=== PATIENT | male | born 1955 | race African-American/Black ===

== ENCOUNTER 2017-04-27 02:58 | Inpatient (IN) | payer OTHER ==
[~2017-04-27] VITALS: Ht 175.3 cm; Wt 101.8 kg
[~2017-04-27 02:58] MED LIST: ACET325T9 PO; ALPR0.25 PO; ALPR0.254 PO; ALPR0.5T PO; ASPI325T8 PO; ATOR20TA58 PO; CARV6.25 PO; CLOP75TA PO; DOCU-109 PO; ESCITALOPRAM OXA5 MG PO; FENO134C PO; FLUT1DIS3 INH; FURO-68 PO; GLIP5TAB10 PO; HYDR-2762 PO; Hydrocodone/Acetaminophen PO; INSU100C4 SQ; INSU100I17 SQ; LINA5TAB4 PO; LISI-338 PO; LISI5TAB PO; METF500T4 PO; NITR0.4T SL; NITR0.4T22 SL; NITR12SP; OMEP20CA9 PO; POTA20TA4 PO; PROAIR HFA8.5 GM; PROAIR HFA8.5 GM IH; SITA100T PO; TICA90TA PO; TRAM50TA PO
[2017-04-27] MEDS ORDERED: IV NORMAL SALINE 1000ML BAG 1,000 ML IV ONE (04:00)
[2017-04-27] MEDS ORDERED: INSULIN REGULAR 100 UNIT/ML 10ML VIAL. IV ONE (04:00)
[2017-04-27 04:03] LABS: BASO # 0.1 x10^3/uL (0.0-0.2); BASO % 1 % (0-3); EOS % 1 % (0-3); HEMATOCRIT 40.1 % (39.0-53.0); HEMOGLOBIN 13.8 g/dL (13.0-17.5); LYMPH # 1.4 x10^3/uL (1.0-4.8); LYMPH % 17 % (24-48); MEAN CORPUSCULAR HEMOGLOBIN 29 pg (25-35); MEAN CORPUSCULAR HGB CONC 34 g/dL (31-37); MEAN CORPUSCULAR VOLUME 85 fL (79-100); MONO % 11 % (0-9); NEUT % 71 % (31-73); PLATELET COUNT 167 x10^3/uL (140-400); RED CELL DISTRIBUTION WIDTH 15.1 % (11.5-14.5); WHITE BLOOD COUNT 7.9 x10^3/uL (4.0-11.0)
[2017-04-27 04:17] LABS: INR 1.7 (0.8-1.1); PROTHROMBIN TIME PATIENT 18.7 SEC (11.7-14.0)
[2017-04-27] MEDS ORDERED: POTASSIUM CHLORIDE 20MEQ 50 ML IV ONE (04:30)
[2017-04-27] MEDS: POTASSIUM CHLORIDE 10MEQ 100 ML IV SCH ×2 (04:36→05:38)
--- NOTE | 2017-04-27 04:44 | PHYS DOC ---
Past Medical History Past Medical History: CHF, COPD, Diabetes-Type II, High Cholesterol, Heart Disease, Hypertension, NM Past Surgical History: Angioplasty, Other Additional Past Surgical Histo: cardiac stents x 3 Alcohol Use: None Drug Use: None Adult General Chief Complaint Chief Complaint: HYPERGLYCEMIA HPI HPI Patient is a 61 year old male presents to the ED with concerns for elevated blood sugars, he states that home is a meter was reading high. Patient also complains of malaise and just not feeling right. He denies any recent illnesses , fevers, chills, vomiting, diarrhea, rashes, sick contacts. Patient is not having any pain at this time. Review of Systems Review of Systems Constitutional: Denies fever or chills. Feels not right Eyes: Denies change in visual acuity, redness, or eye pain [] HENT: Denies nasal congestion or sore throat [] Respiratory: Denies cough or shortness of breath [] Cardiovascular: No chest pain GI: Denies abdominal pain, nausea, vomiting, bloody stools or diarrhea [] : Denies dysuria or hematuria [] Musculoskeletal: Denies back pain or joint pain [] Integument: Denies rash or skin lesions [] Neurologic: Denies headache, focal weakness or sensory changes [] Current Medications Current Medications Current Medications Medications (Trade) Dose Ordered Sig/Chirag Start Time Stop Time Status Last Admin Dose Admin Insulin Human Regular (NovoLIN R VIAL) 8 unit 1X ONCE 04/27/17 04:00 04/27/17 04:01 DC 04/27/17 04:07 8 UNIT Potassium Chloride 100 ml @ 100 mls/hr Q1H 04/27/17 05:00 04/27/17 06:59 04/27/17 04:36 100 MLS/HR Potassium Chloride (Klor-Con) 40 meq 1X ONCE 04/27/17 05:00 04/27/17 05:01 DC 04/27/17 04:36 40 MEQ Sodium Chloride 1,000 ml @ 1,000 mls/hr 1X ONCE 04/27/17 04:00 04/27/17 04:59 DC 04/27/17 04:05 1,000 MLS/HR Allergies Allergies Allergies Coded Allergies Type Severity Reaction Last Updated Verified morphine Allergy Intermediate Rash 04/14/14 Yes shellfish derived Allergy Intermediate 12/11/14 No Physical Exam Physical Exam Constitutional: Well developed, well nourished, no acute distress, non-toxic appearance. [] HENT: Normocephalic, atraumatic, bilateral external ears normal, oropharynx dry no oral exudates, nose normal. [] Eyes: EOMI, conjunctiva normal, no discharge. [] Neck: Normal range of motion, no tenderness, supple, no stridor. No LAD, no meningeal signs Cardiovascular:Heart rate regular rhythm, no murmur [] Lungs & Thorax: Bilateral breath sounds clear to auscultation, no tachypnea Abdomen: Bowel sounds normal, soft, no tenderness, no masses, no pulsatile masses. [] Skin: Warm, dry, no erythema, no rash. [] Back: No tenderness, no CVA tenderness. [] Extremities: No tenderness, no cyanosis, no DVT, ROM intact, no edema. [] Neurologic: Alert and oriented X 3, normal motor function, ambulates in the ED with normal gait and without assistance no focal deficits noted. [] Psychologic: Affect normal, judgement normal, mood normal. [] Current Patient Data Vital Signs Vital Signs Date Time Temp Pulse Resp B/P (MAP) Pulse Ox O2 Delivery O2 Flow Rate FiO2 04/27/17 03:20 97.8 58 16 115/75 (88) 99 Room Air 97.8 Lab Values Laboratory Tests Test 04/27/17 03:26 04/27/17 03:50 Glucose (Fingerstick) 557 mg/dL (70-99) *H White Blood Count 7.9 x10^3/uL (4.0-11.0) Red Blood Count 4.70 x10^6/uL (4.30-5.70) Hemoglobin 13.8 g/dL (13.0-17.5) Hematocrit 40.1 % (39.0-53.0) Mean Corpuscular Volume 85 fL (79-100) Mean Corpuscular Hemoglobin 29 pg (25-35) Mean Corpuscular Hemoglobin Concent 34 g/dL (31-37) Red Cell Distribution Width 15.1 % (11.5-14.5) H Platelet Count 167 x10^3/uL (140-400) Neutrophils (%) (Auto) 71 % (31-73) Lymphocytes (%) (Auto) 17 % (24-48) L Monocytes (%) (Auto) 11 % (0-9) H Eosinophils (%) (Auto) 1 % (0-3) Basophils (%) (Auto) 1 % (0-3) Neutrophils # (Auto) 5.6 x10^3uL (1.8-7.7) Lymphocytes # (Auto) 1.4 x10^3/uL (1.0-4.8) Monocytes # (Auto) 0.8 x10^3/uL (0.0-1.1) Eosinophils # (Auto) 0.1 x10^3/uL (0.0-0.7) Basophils # (Auto) 0.1 x10^3/uL (0.0-0.2) Platelet Estimate Pending Prothrombin Time 18.7 SEC (11.7-14.0) H Prothrombin Time INR 1.7 (0.8-1.1) H Sodium Level 130 mmol/L (136-145) L Potassium Level 2.7 mmol/L (3.5-5.1) *L Chloride Level 88 mmol/L (98-107) L Carbon Dioxide Level 33 mmol/L (21-32) H Anion Gap 9 (6-14) Blood Urea Nitrogen 58 mg/dL (8-26) H Creatinine 3.0 mg/dL (0.7-1.3) H Estimated GFR (Cockcroft-Gault) 26.0 Glucose Level 537 mg/dL (70-99) *H Calcium Level 9.4 mg/dL (8.5-10.1) Magnesium Level 2.9 mg/dL (1.8-2.4) H Troponin I Quantitative 0.031 ng/mL (0.000-0.055) Laboratory Tests 04/27/17 03:50 Laboratory Tests 04/27/17 03:50 EKG EKG 0319 sinus bradycardia, no STEMI, ST depressions [id number] 3 V4 V5 , prolonged QT 0440 sinus bradycardia, no STEMI ST depressions V2 and V3[], prolonged QT Radiology/Procedures Radiology/Procedures [] Course & Med Decision Making Course & Med Decision Making Pertinent Labs and Imaging studies reviewed. (See chart for details) 0443 pt in nad [] Dragon Disclaimer Dragon Disclaimer This electronic medical record was generated, in whole or in part, using a voice recognition dictation system. Departure Departure Impression: Primary Impression: Hyperglycemia Additional Impressions: Hypokalemia Abnormal EKG Dehydration Prolonged QT interval Disposition: ADMITTED INPATIENT Admitting Physician: Mariaelena Petersen Condition: STABLE Referrals: CHRISTIN ALVARES (PCP) Problem Qualifiers Terry MAYS MD Apr 27, 2017 04:44
[2017-04-27] MEDS ORDERED: POTASSIUM CHLORIDE 20 MEQ TABLET.ER. PO ONE ×2 (05:00→12:15)
[2017-04-27] MEDS ORDERED: ONDANSETRON PF 4 MG/2 ML VIAL. IV PRN (05:15)
--- NOTE | 2017-04-27 06:19 | EKG ---
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
--- NOTE | 2017-04-27 06:51 | EKG ---
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
[2017-04-27 07:28] LABS: PLT ESTIMATE ADEQUATE (ADEQUATE)
[2017-04-27 07:30] VITALS: BP 99/63
[2017-04-27] MEDS ORDERED: ATOR40TA59 PO (08:47)
[2017-04-27] MEDS ORDERED: SILD20TA2 PO (08:47)
[2017-04-27] MEDS ORDERED: AMIO200T2 PO (08:47)
[2017-04-27] MEDS ORDERED: ASPI-482 PO (08:47)
[2017-04-27] MEDS ORDERED: FERR-26 PO (08:47)
[2017-04-27] MEDS ORDERED: CHOL10003 PO (08:47)
[2017-04-27] MEDS ORDERED: WARF7.5T48 PO (08:47)
[2017-04-27 09:25] LABS: ALBUMIN 3.8 g/dL (3.4-5.0); TOTAL BILIRUBIN 0.9 mg/dL (0.2-1.0); TOTAL PROTEIN 7.8 g/dL (6.4-8.2)
[2017-04-27 09:52] LABS: POTASSIUM 2.7 mmol/L (3.5-5.1)
[2017-04-27 09:53] LABS: CALCIUM 9.4 mg/dL (8.5-10.1)
[2017-04-27 10:30] VITALS: BP 97/60
[2017-04-27] MEDS ORDERED: DEXTROSE 50% 25 GM / 50ML DISP.SYRIN. IV PRN (10:30)
[2017-04-27] MEDS ORDERED: INSU100I13 SQ (10:31)
[2017-04-27] MEDS: IV NORMAL SALINE 1000ML BAG 1,000 ML IV SCH ×2 (11:12→20:46)
[2017-04-27] MEDS: INSULIN ASPART 300 UNITS/3 ML INSULN.PEN SQ SCH ×2 (11:16→17:32)
--- NOTE | 2017-04-27 11:18 | PDOC2 ---
CARDIAC CONSULT DATE OF CONSULT Date of Consult DATE: 04/27/17 TIME: 10:48 REASON FOR CONSULT Reason for Consult: Abnormal EKG, bradycardia REFERRING PHYSICIAN Referring Physician: Efrain SOURCE Source: Chart review, Patient HISTORY OF PRESENT ILLNESS HISTORY OF PRESENT ILLNESS This is a pleasant 61 yo male admitted for complains of uncontrolled BG. He was feeling weak and malaise at that time. He noted his BG has been running 200- 400s and decided to come to ED. Denies any dizziness, palpitations or passing out. Denies any n/v/diarrhea/fever or chills. He had an open heart surgery 2015 and it was unclear what valves were fixed since he told me he also ended up with mitral clip aside from tricuspid valve surgery. He has been on coumadin therapy and amiodarone since then. He sees cardiology group and was recently seen about a month ago. PAST MEDICAL HISTORY Cardiovascular: CAD, HTN, IA, Hyperlipidemia, Valve insufficiency Pulmonary: COPD, Other (RODOLFO) GI: GERD Psych: Anxiety Musculoskeletal: Osteoarthritis Renal/: Chronic renal insuff Endocrine: Diabetes (2) PAST SURGICAL HISTORY Past Surgical History: Other (PCI/ARTHUR to RCA and LCx; valve surgery 02/2016) FAMILY HISTORY Family History: Coronary Artery Disease SOCIAL HISTORY Smoke: Quit ALCOHOL: none Drugs: Other (hx of polysubstance abuse) Lives: with Family CURRENT MEDICATIONS CURRENT MEDICATIONS Current Medications Medications (Trade) Dose Ordered Sig/Chirag Route PRN Reason Start Time Stop Time Status Last Admin Dose Admin Sodium Chloride 1,000 ml @ 1,000 mls/hr 1X ONCE IV 04/27/17 04:00 04/27/17 04:59 DC 04/27/17 04:05 Insulin Human Regular (NovoLIN R VIAL) 8 unit 1X ONCE IV 04/27/17 04:00 04/27/17 04:01 DC 04/27/17 04:07 Potassium Chloride (Klor-Con) 40 meq 1X ONCE PO 04/27/17 05:00 04/27/17 05:01 DC 04/27/17 04:36 Potassium Chloride 100 ml @ 100 mls/hr Q1H IV 04/27/17 05:00 04/27/17 06:59 DC 04/27/17 05:38 ALLERGIES ALLERGIES: Coded Allergies: morphine (Verified Allergy, Intermediate, Rash, 04/14/14) shellfish derived (Unverified Allergy, Intermediate, 12/11/14) ROS Review of System 14 point ROS evaluated with pertinent positives noted per HPI PHYSICAL EXAM General: Alert, Oriented X3, Cooperative, No acute distress HEENT: Atraumatic, Mucous membr. moist/pink Lungs: Clear to auscultation, Normal air movement Heart: Regular rate (SB), Normal S1, Normal S2, Other (3/6 systolic murmur to LLS border; ejection click) Neuro: Normal speech, Sensation intact Psych/Mental Status: Mental status NL, Mood NL MUSCULOSKELETAL: Osteoarthritic changes both hands VITALS VITALS Vital Signs Date Time Temp Pulse Resp B/P (MAP) Pulse Ox O2 Delivery O2 Flow Rate FiO2 04/27/17 07:30 97.7 57 18 99/63 (75) 100 Room Air 97.7 LABS Lab: Laboratory Tests Test 04/27/17 03:26 04/27/17 03:50 04/27/17 06:25 04/27/17 07:34 Glucose (Fingerstick) 557 mg/dL (70-99) 172 mg/dL (70-99) 249 mg/dL (70-99) White Blood Count 7.9 x10^3/uL (4.0-11.0) Red Blood Count 4.70 x10^6/uL (4.30-5.70) Hemoglobin 13.8 g/dL (13.0-17.5) Hematocrit 40.1 % (39.0-53.0) Mean Corpuscular Volume 85 fL (79-100) Mean Corpuscular Hemoglobin 29 pg (25-35) Mean Corpuscular Hemoglobin Concent 34 g/dL (31-37) Red Cell Distribution Width 15.1 % (11.5-14.5) Platelet Count 167 x10^3/uL (140-400) Neutrophils (%) (Auto) 71 % (31-73) Lymphocytes (%) (Auto) 17 % (24-48) Monocytes (%) (Auto) 11 % (0-9) Eosinophils (%) (Auto) 1 % (0-3) Basophils (%) (Auto) 1 % (0-3) Neutrophils # (Auto) 5.6 x10^3uL (1.8-7.7) Lymphocytes # (Auto) 1.4 x10^3/uL (1.0-4.8) Monocytes # (Auto) 0.8 x10^3/uL (0.0-1.1) Eosinophils # (Auto) 0.1 x10^3/uL (0.0-0.7) Basophils # (Auto) 0.1 x10^3/uL (0.0-0.2) Segmented Neutrophils % 69 % (35-66) Lymphocytes % 20 % (24-48) Monocytes % 11 % (0-10) Platelet Estimate Adequate (ADEQUATE) Prothrombin Time 18.7 SEC (11.7-14.0) Prothromb Time International Ratio 1.7 (0.8-1.1) Sodium Level 130 mmol/L (136-145) Potassium Level 2.7 mmol/L (3.5-5.1) Chloride Level 88 mmol/L (98-107) Carbon Dioxide Level 33 mmol/L (21-32) Anion Gap 9 (6-14) Blood Urea Nitrogen 58 mg/dL (8-26) Creatinine 3.0 mg/dL (0.7-1.3) Estimated GFR (Cockcroft-Gault) 26.0 BUN/Creatinine Ratio 19 (6-20) Glucose Level 537 mg/dL (70-99) Calcium Level 9.4 mg/dL (8.5-10.1) Magnesium Level 2.9 mg/dL (1.8-2.4) Total Bilirubin 0.9 mg/dL (0.2-1.0) Aspartate Amino Transf (AST/SGOT) 31 U/L (15-37) Alanine Aminotransferase (ALT/SGPT) 50 U/L (16-63) Alkaline Phosphatase 197 U/L (46-116) Troponin I Quantitative 0.031 ng/mL (0.000-0.055) Total Protein 7.8 g/dL (6.4-8.2) Albumin 3.8 g/dL (3.4-5.0) Albumin/Globulin Ratio 1.0 (1.0-1.7) Thyroid Stimulating Hormone (TSH) 1.673 uIU/mL (0.358-3.74) Test 04/27/17 09:25 Troponin I Quantitative 0.027 ng/mL (0.000-0.055) ECHOCARDIOGRAM ECHOCARDIOGRAM <Conclusion> Limited 2D echo to assess left ventricular function. Color and doppler waveform analysis not performed. The left ventricular ejection fraction is estimated at 50%. Akinetic basal inferoposterior wall. There is no evidence of significant pericardial effusion. DATE: 11/07/14 1606 <Conclusion> Left ventricle systolic function is low normal. The Ejection Fraction is 50%. Doppler and Color Flow revealed mild mitral regurgitation. Doppler and Color Flow revealed trace tricuspid regurgitation. The PA pressure was estimated at 32mmHg. Patient has what appears to be an echogenic calcified papillary seen only one view. Clinical correlation required. DATE: 10/11/14 1330 STRESS TEST STRESS TEST PROCEDURE NARRATIVE Please see procedure log for diagnostic procedure narrative. Intervention was performed with aspirin on board. Patient was given 75 units per kilo of heparin on a weight-based protocol. Patient also received Integrilin double bolus protocol and drip was initiated. We then took a 6 Slovak hockey stick guide to the ostium of the right coronary artery over a 0.035 guidewire with minimal difficulty. We then advanced a 300 cm Whisper extra support wire through the location of the mid lesion. We then advanced a Integrity Resolute 2.7512 mm drug-eluting stent and confirm position in 2 views. We then performed high pressure inflation to 16 vel for 1 minute. Angiography in 2 views demonstrated excellent angiographic result with no evidence of dissection and the preservation of ANITA-3 flow. Patient was transferred in stable condition for overnight monitoring to telemetry and will likely be discharged in a.m. The left main coronary artery is a large size vessel . There is a 0% stenosis . The left main bifurcates to the left anterior descending and circumflex. The left anterior descending artery is a large size vessel . There is a 0% stenosis . The circumflex artery is a medium size vessel . There is a 70% stenosis in the mid segment. The first obtuse marginal branch is a small size vessel . There is a 75% stenosis in the mid segment. <Conclusion> DATE: 10/12/14 1147 ASSESSMENT/PLAN ASSESSMENT/PLAN 1. Weakness; multifactorial 2. Uncontrolled DM2 3. FATOU on CKD3 4. Abnormal EKG/bradycardia: This is due to prolonged QTc at 548 and hypokalemia. 5. CAD: PCI/stents in 2014. No cardiac symptoms. Stable 6. Valvular disease: possible repaired vegetative AV valves. Open surgery followed by percutaneous repair? 7. COPD 8. HTN 9. HLP 10. Chronic coumadin with amiodarone therapy: unclear of what use Recommendations 1. Will obtain [facility] records. 2. Replace K and IV hydrate per nephrology 3. Hold amiodarone at this time. No AV tej blocking agents. 4. Defer OAC to PCP. 5. Monitor lytes 6. Further recommendations pending records. Problems: JEAN-PIERRE [place] APRN Apr 27, 2017 11:18
--- NOTE | 2017-04-27 12:04 | HP ---
ADMIT DATE: 04/27/2017 CHIEF COMPLAINT: Hyperglycemia. HISTORY OF PRESENT ILLNESS: The patient is a pleasant 61-year-old male who has diabetes. Basically, he presented with sugars greater than 500. I have discussed the case with ER physician. We are going to admit him with insulin and fluids. PAST MEDICAL HISTORY: CHF, COPD, diabetes, hyperlipidemia, hypertension, myocardial infarction and angioplasty, cardiac stents x 3, coronary artery bypass grafting and mitral valve clip, congestive heart failure. ALLERGIES: MORPHINE and SHELLFISH. FAMILY HISTORY: Diabetes. SOCIAL HISTORY: Does not drink, smoke or take drugs. MEDICATIONS: Reviewed. REVIEW OF SYSTEMS: GENERAL: No history of weight change, weakness or fevers. SKIN: No bruising, hair changes or rashes. EYES: No blurred, double or loss of vision. NOSE AND THROAT: No history of nosebleeds, hoarseness or sore throat. HEART: No history of palpitations, chest pain or shortness of breath on exertion. LUNGS: Denies cough, hemoptysis, wheezing or shortness of breath. GASTROINTESTINAL: Denies changes in appetite, nausea, vomiting, diarrhea or constipation. GENITOURINARY: No history of frequency, urgency, hesitancy or nocturia. NEUROLOGIC: Denies history of numbness, tingling, tremor or weakness. PSYCHIATRIC: No history of panic, anxiety or depression. ENDOCRINE: No history of heat or cold intolerance, polyuria or polydipsia. EXTREMITIES: Denies muscle weakness, joint pain, pain on walking or stiffness. METABOLIC: He complains of hyperglycemia. PHYSICAL EXAMINATION: VITAL SIGNS: Temperature afebrile, pulse 97, respirations 18, blood pressure 117/70. GENERAL: He is alert, cooperative. HEART: Normal S1, S2. LUNGS: Clear. ABDOMEN: Soft. EXTREMITIES: No edema. SKIN: No rashes. PSYCHIATRIC: Stable. VASCULAR: Good capillary refill. ENDOCRINE: No thyromegaly. LYMPHATICS: No cervical nodes. HEMATOPOIETIC: No bruising. LABORATORY DATA: White count 8, hemoglobin 14, platelets 167. Electrolytes: Sodium 130, potassium 2.7, chloride 88, bicarbonate 33, BUN 50, creatinine 3, glucose 537. ASSESSMENT AND PLAN: 1. Hyperglycemia, hyponatremia, acute renal failure, azotemia. The patient has been admitted. We will give gentle IV fluids and because of his history of heart failure and IV insulin. 2. We will replace his potassium, frequent Accu-Cheks. Consult Dr. Bruno, consult Dr. Dao. PT, OT and home meds. PROGNOSIS: Guarded. NIAL Erinn PEACE DO DR: DONNA/avtar JOB#: [id number] / [id number]
--- NOTE | 2017-04-27 12:08 | PDOC2 ---
CONSULT Date of Consult Date of Consult DATE: 04/27/17 TIME: 12:03 Reason for Consult Reason for Consult: FATOU Referring Physician Referring Physician: KOBI Identification/Chief Complaint Chief Complaint HIGH BG, WEAK Problems: Source Source: Chart review, Patient History of Present Illness Reason for Visit: THIS IS A 61 YR OLD ADMITTED WITH WEAKNESS AND UNCONTROLLED BLOOD SUGARS. CR IS 3.0. HE HAS NOTED INCREASED THIRST AND INCREASED URINATION. CR WAS 1.5. CR IS 3.0 NOW. K IS LOW. HE HAS A HX OF DM II AND HTN. HE HAS BEEN ON DIURETICS Past Medical History Cardiovascular: CAD, HTN, [place], Hyperlipidemia, Valve insufficiency Pulmonary: COPD, Other (RODOLFO) GI: GERD Psych: Anxiety Musculoskeletal: Osteoarthritis Renal/: Chronic renal insuff Endocrine: Diabetes (2) Past Surgical History Past Surgical History: Other (PCI/ARTHUR to RCA and LCx; valve surgery 02/2016) Family History Family History: Coronary Artery Disease Social History Quit ALCOHOL: none Drugs: Other (hx of polysubstance abuse) Lives: with Family Domestic Violence: Neg Current Problem List Problem List Problems Medical Problems: (1) Abnormal EKG Status: Acute (2) Dehydration Status: Acute (3) Prolonged QT interval Status: Acute Current Medications Current Medications Current Medications Sodium Chloride 1,000 ml @ 1,000 mls/hr 1X ONCE IV Last administered on 04:05; Start 04/27/17 at 04:00; Stop 04/27/17 at 04:59; Status DC Insulin Human Regular (NovoLIN R VIAL) 8 unit 1X ONCE IV Last administered on 04/27/17 04:07; Start 04/27/17 at 04:00; Stop 04/27/17 at 04:01; Status DC Potassium Chloride 50 ml @ 50 mls/hr 1X ONCE IV ; Start 04/27/17 at 04:30; Stop 04/27/17 at 05:29; Status UNV Potassium Chloride (Klor-Con) 40 meq 1X ONCE PO Last administered on 04:36; Start 04/27/17 at 05:00; Stop 04/27/17 at 05:01; Status DC Potassium Chloride 100 ml @ 100 mls/hr Q1H IV Last administered on 04/27/17 05:38; Start 04/27/17 at 05:00; Stop 04/27/17 at 06:59; Status DC Ondansetron HCl (Zofran) 4 mg PRN Q8HRS PRN IV NAUSEA/VOMITING; Start 04/27/17 at 05:15; Stop 04/28/17 at 05:14 Insulin Aspart (NovoLOG) 0-7 UNITS TIDWMEALS SQ Last administered on 04/27/17 11:16; Start 04/27/17 at 12:00 Dextrose (Dextrose 50%-Water Syringe) 12.5 gm PRN Q15MIN PRN IV SEE COMMENTS; Start 04/27/17 at 10:30 Sodium Chloride 1,000 ml @ 50 mls/hr Q20H IV Last administered on 04/27/17 11 :12; Start 04/27/17 at 11:00 Active Scripts Active Advair 250-50 Diskus (Fluticasone/Salmeterol) 1 Puff Puff 1 Puff INH BID Tylenol (Acetaminophen) 325 Mg Tablet 650 Mg PO PRN Q6HRS PRN Klor-Con M20 (Potassium Chloride) 20 Meq Tablet.er 20 Meq PO BID Lasix (Furosemide) 40 Mg Tablet 40 Mg PO [id number] Reported Lantus Solostar (Insulin Glargine,Hum.rec.anlog) 100 Unit/1 Ml Insuln.pen 16 Unit SQ HS Aspir 81 (Aspirin) 81 Mg Tablet.dr 1 Tab PO DAILY Coumadin (Warfarin Sodium) 7.5 Mg Tablet 1 Tab PO HS Vitamin D3 (Cholecalciferol (Vitamin D3)) 1,000 Unit Tablet 2 Tab PO DAILY Amiodarone Hcl 200 Mg Tablet 1 Tab PO DAILY Ferrous Sulfate 325 Mg Tablet 325 Mg PO Sildenafil (Sildenafil Citrate) 20 Mg Tablet 10 Mg PO TID Atorvastatin Calcium 40 Mg Tablet 1 Tab PO DAILY Tradjenta (Linagliptin) 5 Mg Tablet 1 Tab PO DAILY NITROGLYCERIN SubLingual (Nitroglycerin) 0.4 Mg Tab.subl 0.4 Mg SL PRN Q5MIN PRN Proair Hfa Inhaler (Albuterol Sulfate) 8.5 Gm Hfa.aer.ad 2 Puff IH PRN Q4-6HRS Allergies Allergies: Coded Allergies: morphine (Verified Allergy, Intermediate, Rash, 04/14/14) shellfish derived (Unverified Allergy, Intermediate, 12/11/14) ROS General: YES: Fatigue, Appetite PSYCHOLOGICAL ROS: YES: Anxiety Eyes: Yes Blurry vision, Yes Decreased vision HEENT: YES: Heacaches Respiratory: YES: Cough Cardiovascular: yes Lt Headedness Gastrointestinal: Yes Nausea, Yes Constipation Genitourinary: YES Frequency Musculoskeletal: Yes Muscular Weakness Neurological: Yes Dizziness, Yes Weakness Skin: Yes Dry Skin Physical Exam General: Alert, Oriented X3, Cooperative, No acute distress HEENT: Atraumatic, PERRLA, Other (DRY) Lungs: Clear to auscultation Heart: Regular rate, Normal S1, Normal S2 Abdomen: Normal bowel sounds, Soft, No tenderness Extremities: No clubbing Skin: No breakdown Neuro: Normal speech, Cranial nerves 3-12 NL Psych/Mental Status: Mental status NL, Mood NL MUSCULOSKELETAL: No deformity, No swelling Vitals VITALS Vital Signs Date Time Temp Pulse Resp B/P (MAP) Pulse Ox O2 Delivery O2 Flow Rate FiO2 04/27/17 10:30 97.9 58 18 97/60 (72) 99 Room Air 97.9 Labs Labs Laboratory Tests Test 04/27/17 03:26 04/27/17 03:50 04/27/17 06:25 04/27/17 07:34 Glucose (Fingerstick) 557 mg/dL (70-99) 172 mg/dL (70-99) 249 mg/dL (70-99) White Blood Count 7.9 x10^3/uL (4.0-11.0) Red Blood Count 4.70 x10^6/uL (4.30-5.70) Hemoglobin 13.8 g/dL (13.0-17.5) Hematocrit 40.1 % (39.0-53.0) Mean Corpuscular Volume 85 fL (79-100) Mean Corpuscular Hemoglobin 29 pg (25-35) Mean Corpuscular Hemoglobin Concent 34 g/dL (31-37) Red Cell Distribution Width 15.1 % (11.5-14.5) Platelet Count 167 x10^3/uL (140-400) Neutrophils (%) (Auto) 71 % (31-73) Lymphocytes (%) (Auto) 17 % (24-48) Monocytes (%) (Auto) 11 % (0-9) Eosinophils (%) (Auto) 1 % (0-3) Basophils (%) (Auto) 1 % (0-3) Neutrophils # (Auto) 5.6 x10^3uL (1.8-7.7) Lymphocytes # (Auto) 1.4 x10^3/uL (1.0-4.8) Monocytes # (Auto) 0.8 x10^3/uL (0.0-1.1) Eosinophils # (Auto) 0.1 x10^3/uL (0.0-0.7) Basophils # (Auto) 0.1 x10^3/uL (0.0-0.2) Segmented Neutrophils % 69 % (35-66) Lymphocytes % 20 % (24-48) Monocytes % 11 % (0-10) Platelet Estimate Adequate (ADEQUATE) Prothrombin Time 18.7 SEC (11.7-14.0) Prothromb Time International Ratio 1.7 (0.8-1.1) Sodium Level 130 mmol/L (136-145) Potassium Level 2.7 mmol/L (3.5-5.1) Chloride Level 88 mmol/L (98-107) Carbon Dioxide Level 33 mmol/L (21-32) Anion Gap 9 (6-14) Blood Urea Nitrogen 58 mg/dL (8-26) Creatinine 3.0 mg/dL (0.7-1.3) Estimated GFR (Cockcroft-Gault) 26.0 BUN/Creatinine Ratio 19 (6-20) Glucose Level 537 mg/dL (70-99) Calcium Level 9.4 mg/dL (8.5-10.1) Magnesium Level 2.9 mg/dL (1.8-2.4) Total Bilirubin 0.9 mg/dL (0.2-1.0) Aspartate Amino Transf (AST/SGOT) 31 U/L (15-37) Alanine Aminotransferase (ALT/SGPT) 50 U/L (16-63) Alkaline Phosphatase 197 U/L (46-116) Troponin I Quantitative 0.031 ng/mL (0.000-0.055) Total Protein 7.8 g/dL (6.4-8.2) Albumin 3.8 g/dL (3.4-5.0) Albumin/Globulin Ratio 1.0 (1.0-1.7) Thyroid Stimulating Hormone (TSH) 1.673 uIU/mL (0.358-3.74) Test 04/27/17 09:25 04/27/17 10:58 Troponin I Quantitative 0.027 ng/mL (0.000-0.055) Glucose (Fingerstick) 241 mg/dL (70-99) Laboratory Tests Test 04/27/17 03:26 04/27/17 03:50 04/27/17 06:25 04/27/17 07:34 Glucose (Fingerstick) 557 mg/dL (70-99) 172 mg/dL (70-99) 249 mg/dL (70-99) White Blood Count 7.9 x10^3/uL (4.0-11.0) Red Blood Count 4.70 x10^6/uL (4.30-5.70) Hemoglobin 13.8 g/dL (13.0-17.5) Hematocrit 40.1 % (39.0-53.0) Mean Corpuscular Volume 85 fL (79-100) Mean Corpuscular Hemoglobin 29 pg (25-35) Mean Corpuscular Hemoglobin Concent 34 g/dL (31-37) Red Cell Distribution Width 15.1 % (11.5-14.5) Platelet Count 167 x10^3/uL (140-400) Neutrophils (%) (Auto) 71 % (31-73) Lymphocytes (%) (Auto) 17 % (24-48) Monocytes (%) (Auto) 11 % (0-9) Eosinophils (%) (Auto) 1 % (0-3) Basophils (%) (Auto) 1 % (0-3) Neutrophils # (Auto) 5.6 x10^3uL (1.8-7.7) Lymphocytes # (Auto) 1.4 x10^3/uL (1.0-4.8) Monocytes # (Auto) 0.8 x10^3/uL (0.0-1.1) Eosinophils # (Auto) 0.1 x10^3/uL (0.0-0.7) Basophils # (Auto) 0.1 x10^3/uL (0.0-0.2) Segmented Neutrophils % 69 % (35-66) Lymphocytes % 20 % (24-48) Monocytes % 11 % (0-10) Platelet Estimate Adequate (ADEQUATE) Prothrombin Time 18.7 SEC (11.7-14.0) Prothromb Time International Ratio 1.7 (0.8-1.1) Sodium Level 130 mmol/L (136-145) Potassium Level 2.7 mmol/L (3.5-5.1) Chloride Level 88 mmol/L (98-107) Carbon Dioxide Level 33 mmol/L (21-32) Anion Gap 9 (6-14) Blood Urea Nitrogen 58 mg/dL (8-26) Creatinine 3.0 mg/dL (0.7-1.3) Estimated GFR (Cockcroft-Gault) 26.0 BUN/Creatinine Ratio 19 (6-20) Glucose Level 537 mg/dL (70-99) Calcium Level 9.4 mg/dL (8.5-10.1) Magnesium Level 2.9 mg/dL (1.8-2.4) Total Bilirubin 0.9 mg/dL (0.2-1.0) Aspartate Amino Transf (AST/SGOT) 31 U/L (15-37) Alanine Aminotransferase (ALT/SGPT) 50 U/L (16-63) Alkaline Phosphatase 197 U/L (46-116) Troponin I Quantitative 0.031 ng/mL (0.000-0.055) Total Protein 7.8 g/dL (6.4-8.2) Albumin 3.8 g/dL (3.4-5.0) Albumin/Globulin Ratio 1.0 (1.0-1.7) Thyroid Stimulating Hormone (TSH) 1.673 uIU/mL (0.358-3.74) Test 04/27/17 09:25 04/27/17 10:58 Troponin I Quantitative 0.027 ng/mL (0.000-0.055) Glucose (Fingerstick) 241 mg/dL (70-99) Assessment/Plan Assessment/Plan IMP FATOU DEHYDRATION CKD STAGE 3 MOST LIKELY-CR WAS 1.5 IN 2014 DM II-UNCONTROLLED HTN PLAN HYDRATE HOLD DIURETICS REPLACE MELL SINGER MD Apr 27, 2017 12:08
[2017-04-27 14:30] VITALS: BP 112/66
[2017-04-27] MEDS ORDERED: POLY17PO29 PO (14:42)
[2017-04-27] MEDS ORDERED: ACETAMINOPHEN 325 MG TABLET. PO PRN (16:00)
[2017-04-27] MEDS ORDERED: NON FORMULARY ITEM (Albuterol Sulfate (Proair Hfa Inhaler) 2 PUFF) IH SCH (16:00)
[2017-04-27] MEDS ORDERED: ALBUTEROL SULFATE 2.5 MG/3 ML NEBU. NEB PRN (16:30)
[2017-04-27] MEDS: POTASSIUM CHLORIDE 20 MEQ TABLET.ER. PO SCH (17:00)
[2017-04-27] MEDS: LINAGLIPTIN 5 MG TABLET PO SCH (17:24)
[2017-04-27] MEDS: CHOLECALCIFEROL (VITAMIN D3) 1,000 UNIT TABLET PO SCH (17:25)
[2017-04-27] MEDS: FERROUS SULFATE 325 MG TABLET. PO SCH (17:25)
[2017-04-27] MEDS: ASPIRIN ENTERIC COATED 81 MG TABLET.DR. PO SCH (17:25)
[2017-04-27] MEDS: FUROSEMIDE 40 MG TABLET. PO SCH (17:25)
[2017-04-27] MEDS ORDERED: INSULIN ASPART 300 UNITS/3 ML INSULN.PEN SQ ONE ×2 (18:00→22:00)
[2017-04-27 19:00] VITALS: BP 106/56
[2017-04-27] MEDS: ALBUTEROL SULFATE 2.5 MG/3 ML NEBU. NEB SCH (19:42)
[2017-04-27] MEDS: BUDESONIDE 0.5 MG/2 ML NEBU. NEB SCH (19:42)
[2017-04-27] MEDS: ATORVASTATIN CALCIUM 40 MG TABLET. PO SCH (20:44)
[2017-04-27] MEDS: POLYETHYLENE GLYCOL 3350 17 GM PACKET. PO PRN (20:49)
[2017-04-27] MEDS ORDERED: INSULIN DETEMIR 300 UNITS/3 ML INSULN.PEN. SQ SCH (21:00)
[2017-04-27] MEDS ORDERED: NON FORMULARY ITEM (Fluticasone/Salmeterol (Advair 250-50 Diskus) 1 PUFF) INH SCH (21:00)
[2017-04-27 23:00] VITALS: BP 107/60
[2017-04-28] VITALS (7 sets, daily range): BP systolic 88–113; BP diastolic 51–68
[2017-04-28] MEDS: IV NORMAL SALINE 1000ML BAG 1,000 ML IV SCH ×3 (02:53→16:32)
[2017-04-28 04:27] LABS: BASO % 1 % (0-3); EOS % 1 % (0-3); HEMATOCRIT 35.5 % (39.0-53.0); HEMOGLOBIN 12.6 g/dL (13.0-17.5); LYMPH # 1.4 x10^3/uL (1.0-4.8); LYMPH % 18 % (24-48); MEAN CORPUSCULAR HEMOGLOBIN 30 pg (25-35); MEAN CORPUSCULAR HGB CONC 36 g/dL (31-37); MEAN CORPUSCULAR VOLUME 84 fL (79-100); MONO % 9 % (0-9); NEUT % 72 % (31-73); PLATELET COUNT 164 x10^3/uL (140-400); RED BLOOD COUNT 4.21 x10^6/uL (4.30-5.70); RED CELL DISTRIBUTION WIDTH 14.8 % (11.5-14.5)
[2017-04-28 04:33] LABS: CALCIUM 8.5 mg/dL (8.5-10.1); GFR 41.6
[2017-04-28 04:36] LABS: POTASSIUM 2.8 mmol/L (3.5-5.1)
[2017-04-28] MEDS: POTASSIUM CHLORIDE 10MEQ 100 ML IV SCH ×4 (06:29→11:58)
[2017-04-28] MEDS: ALBUTEROL SULFATE 2.5 MG/3 ML NEBU. NEB SCH ×4 (07:19→19:32)
[2017-04-28] MEDS: BUDESONIDE 0.5 MG/2 ML NEBU. NEB SCH ×2 (07:20→19:31)
[2017-04-28] MEDS: INSULIN ASPART 300 UNITS/3 ML INSULN.PEN SQ SCH ×4 (08:07→16:37)
[2017-04-28] MEDS: FERROUS SULFATE 325 MG TABLET. PO SCH (09:27)
[2017-04-28] MEDS: FUROSEMIDE 40 MG TABLET. PO SCH (09:27)
[2017-04-28] MEDS: LINAGLIPTIN 5 MG TABLET PO SCH (09:28)
[2017-04-28] MEDS: CHOLECALCIFEROL (VITAMIN D3) 1,000 UNIT TABLET PO SCH (09:28)
[2017-04-28] MEDS: ASPIRIN ENTERIC COATED 81 MG TABLET.DR. PO SCH (09:28)
[2017-04-28] MEDS: POTASSIUM CHLORIDE 20 MEQ TABLET.ER. PO SCH ×2 (09:28→16:31)
--- NOTE | 2017-04-28 11:25 | PDOC ---
Renal-Progress Notes Subjective Notes Notes NO NEW COMPLAINTS History of Present Illness Hx of present illness STABLE Vitals Vitals Vital Signs Date Time Temp Pulse Resp B/P (MAP) Pulse Ox O2 Delivery O2 Flow Rate FiO2 04/28/17 10:54 97.9 72 18 113/68 (83) 96 Room Air 97.9 Weight Weight [ ] I.O. Intake and Output Intake and Output 04/29/17 07:00 Intake Total 300 ml Balance 300 ml Intake Oral 300 ml Labs Labs Laboratory Tests Test 04/27/17 16:28 04/27/17 20:59 04/28/17 00:20 04/28/17 02:34 Glucose (Fingerstick) 446 mg/dL (70-99) 450 mg/dL (70-99) 210 mg/dL (70-99) 81 mg/dL (70-99) Test 04/28/17 03:14 04/28/17 04:17 04/28/17 07:02 04/28/17 10:07 White Blood Count 8.0 x10^3/uL (4.0-11.0) Red Blood Count 4.21 x10^6/uL (4.30-5.70) Hemoglobin 12.6 g/dL (13.0-17.5) Hematocrit 35.5 % (39.0-53.0) Mean Corpuscular Volume 84 fL (79-100) Mean Corpuscular Hemoglobin 30 pg (25-35) Mean Corpuscular Hemoglobin Concent 36 g/dL (31-37) Red Cell Distribution Width 14.8 % (11.5-14.5) Platelet Count 164 x10^3/uL (140-400) Neutrophils (%) (Auto) 72 % (31-73) Lymphocytes (%) (Auto) 18 % (24-48) Monocytes (%) (Auto) 9 % (0-9) Eosinophils (%) (Auto) 1 % (0-3) Basophils (%) (Auto) 1 % (0-3) Neutrophils # (Auto) 5.7 x10^3uL (1.8-7.7) Lymphocytes # (Auto) 1.4 x10^3/uL (1.0-4.8) Monocytes # (Auto) 0.7 x10^3/uL (0.0-1.1) Eosinophils # (Auto) 0.1 x10^3/uL (0.0-0.7) Basophils # (Auto) 0.0 x10^3/uL (0.0-0.2) Sodium Level 137 mmol/L (136-145) Potassium Level 2.8 mmol/L (3.5-5.1) Chloride Level 98 mmol/L (98-107) Carbon Dioxide Level 32 mmol/L (21-32) Anion Gap 7 (6-14) Blood Urea Nitrogen 39 mg/dL (8-26) Creatinine 2.0 mg/dL (0.7-1.3) Estimated GFR (Cockcroft-Gault) 41.6 Glucose Level 163 mg/dL (70-99) Calcium Level 8.5 mg/dL (8.5-10.1) Magnesium Level 2.4 mg/dL (1.8-2.4) Glucose (Fingerstick) 152 mg/dL (70-99) 157 mg/dL (70-99) 360 mg/dL (70-99) Review of Systems Constitutional: yes: alert, oriented Ears/Nose/Throat: Yes: no symptom reported Eyes: Yes: no symptom reported Pulmonary: Yes no symptom reported Cardiovascular: Yes no symptom reported Gastrointestional: Yes: no symptom reported Genitourinary: Yes: no symptom reported Musculoskeletal: Yes: no symptom reported Psychiatric/Neurological: Yes: no symptom reported Endocrine: Yes: no symptom reported Physical Exam General Appearance: no apparent distress Skin: warm Respiratory: bilateral CTA Heart: S1S2, RRR Abdomen: soft, bowel sounds present Genitourinary: bladder flat Extremities: pulses present, no edema, atrophy Neurology: alert, oriented, follow commands Assessment Assessment IMP DEHYDRATION FATOU BETTER WITH CR DOWN TO 2.0 CKD STAGE 3-PROB AT BASELINE NOW DM II-POORLY CONTROLLED AFIB HTN LOW K PLAN CONT IVF'S REPLACE K MELL PATTERSON MD Apr 28, 2017 11:25
--- NOTE | 2017-04-28 14:15 | PDOC ---
PROGRESS NOTES Chief Complaint Chief Complaint Uncontrolled DM2 FATOU on CKD3, vasomotor Abnormal EKG/bradycardia: This is due to prolonged QTc at 548 and hypokalemia. h/o CAD: PCI/stents in 2015. post CABG? COPD HTN HLP PAFIB on coumadin and amiodarone hypokalemia plan: fu with card, renal cont ivf, hold lasix need resume warfarin and amiodarone if ok with card increase insulin to levemir 20u qhs, aspart 8u tid, ssi repeat labs tmr, hba1c, INR History of Present Illness History of Present Illness ROS: no fever, chills, sob or chest pain very concern about his warfarin and amiodarone held, sinus now c/o DM not controlled well with pcp hyperglycemia Vitals Vitals Vital Signs Date Time Temp Pulse Resp B/P (MAP) Pulse Ox O2 Delivery O2 Flow Rate FiO2 04/28/17 11:43 Room Air 04/28/17 10:54 97.9 72 18 113/68 (83) 96 97.9 Physical Exam General: Alert, Oriented X3, Cooperative, No acute distress Heart: Regular rate, Normal S1, Normal S2 Lungs: Clear Abdomen: Normal bowel sounds, Soft, No tenderness Extremities: No clubbing Skin: No breakdown Labs LABS Laboratory Tests Test 04/27/17 16:28 04/27/17 20:59 04/28/17 00:20 04/28/17 02:34 Glucose (Fingerstick) 446 mg/dL (70-99) 450 mg/dL (70-99) 210 mg/dL (70-99) 81 mg/dL (70-99) Test 04/28/17 03:14 04/28/17 04:17 04/28/17 07:02 04/28/17 10:07 White Blood Count 8.0 x10^3/uL (4.0-11.0) Red Blood Count 4.21 x10^6/uL (4.30-5.70) Hemoglobin 12.6 g/dL (13.0-17.5) Hematocrit 35.5 % (39.0-53.0) Mean Corpuscular Volume 84 fL (79-100) Mean Corpuscular Hemoglobin 30 pg (25-35) Mean Corpuscular Hemoglobin Concent 36 g/dL (31-37) Red Cell Distribution Width 14.8 % (11.5-14.5) Platelet Count 164 x10^3/uL (140-400) Neutrophils (%) (Auto) 72 % (31-73) Lymphocytes (%) (Auto) 18 % (24-48) Monocytes (%) (Auto) 9 % (0-9) Eosinophils (%) (Auto) 1 % (0-3) Basophils (%) (Auto) 1 % (0-3) Neutrophils # (Auto) 5.7 x10^3uL (1.8-7.7) Lymphocytes # (Auto) 1.4 x10^3/uL (1.0-4.8) Monocytes # (Auto) 0.7 x10^3/uL (0.0-1.1) Eosinophils # (Auto) 0.1 x10^3/uL (0.0-0.7) Basophils # (Auto) 0.0 x10^3/uL (0.0-0.2) Sodium Level 137 mmol/L (136-145) Potassium Level 2.8 mmol/L (3.5-5.1) Chloride Level 98 mmol/L (98-107) Carbon Dioxide Level 32 mmol/L (21-32) Anion Gap 7 (6-14) Blood Urea Nitrogen 39 mg/dL (8-26) Creatinine 2.0 mg/dL (0.7-1.3) Estimated GFR (Cockcroft-Gault) 41.6 Glucose Level 163 mg/dL (70-99) Calcium Level 8.5 mg/dL (8.5-10.1) Magnesium Level 2.4 mg/dL (1.8-2.4) Glucose (Fingerstick) 152 mg/dL (70-99) 157 mg/dL (70-99) 360 mg/dL (70-99) Assessment and Plan Assessmemt and Plan Problems Medical Problems: (1) Abnormal EKG Status: Acute (2) Dehydration Status: Acute (3) Prolonged QT interval Status: Acute Problems: Comment Review of Relevant I have reviewed the following items eliana (where applicable) has been applied. Labs Laboratory Tests Test 04/27/17 03:26 04/27/17 03:50 04/27/17 06:25 04/27/17 07:34 Glucose (Fingerstick) 557 mg/dL (70-99) 172 mg/dL (70-99) 249 mg/dL (70-99) White Blood Count 7.9 x10^3/uL (4.0-11.0) Red Blood Count 4.70 x10^6/uL (4.30-5.70) Hemoglobin 13.8 g/dL (13.0-17.5) Hematocrit 40.1 % (39.0-53.0) Mean Corpuscular Volume 85 fL (79-100) Mean Corpuscular Hemoglobin 29 pg (25-35) Mean Corpuscular Hemoglobin Concent 34 g/dL (31-37) Red Cell Distribution Width 15.1 % (11.5-14.5) Platelet Count 167 x10^3/uL (140-400) Neutrophils (%) (Auto) 71 % (31-73) Lymphocytes (%) (Auto) 17 % (24-48) Monocytes (%) (Auto) 11 % (0-9) Eosinophils (%) (Auto) 1 % (0-3) Basophils (%) (Auto) 1 % (0-3) Neutrophils # (Auto) 5.6 x10^3uL (1.8-7.7) Lymphocytes # (Auto) 1.4 x10^3/uL (1.0-4.8) Monocytes # (Auto) 0.8 x10^3/uL (0.0-1.1) Eosinophils # (Auto) 0.1 x10^3/uL (0.0-0.7) Basophils # (Auto) 0.1 x10^3/uL (0.0-0.2) Segmented Neutrophils % 69 % (35-66) Lymphocytes % 20 % (24-48) Monocytes % 11 % (0-10) Platelet Estimate Adequate (ADEQUATE) Prothrombin Time 18.7 SEC (11.7-14.0) Prothromb Time International Ratio 1.7 (0.8-1.1) Sodium Level 130 mmol/L (136-145) Potassium Level 2.7 mmol/L (3.5-5.1) Chloride Level 88 mmol/L (98-107) Carbon Dioxide Level 33 mmol/L (21-32) Anion Gap 9 (6-14) Blood Urea Nitrogen 58 mg/dL (8-26) Creatinine 3.0 mg/dL (0.7-1.3) Estimated GFR (Cockcroft-Gault) 26.0 BUN/Creatinine Ratio 19 (6-20) Glucose Level 537 mg/dL (70-99) Calcium Level 9.4 mg/dL (8.5-10.1) Magnesium Level 2.9 mg/dL (1.8-2.4) Total Bilirubin 0.9 mg/dL (0.2-1.0) Aspartate Amino Transf (AST/SGOT) 31 U/L (15-37) Alanine Aminotransferase (ALT/SGPT) 50 U/L (16-63) Alkaline Phosphatase 197 U/L (46-116) Troponin I Quantitative 0.031 ng/mL (0.000-0.055) Total Protein 7.8 g/dL (6.4-8.2) Albumin 3.8 g/dL (3.4-5.0) Albumin/Globulin Ratio 1.0 (1.0-1.7) Thyroid Stimulating Hormone (TSH) 1.673 uIU/mL (0.358-3.74) Test 04/27/17 09:25 04/27/17 10:58 04/27/17 16:28 04/27/17 20:59 Troponin I Quantitative 0.027 ng/mL (0.000-0.055) Glucose (Fingerstick) 241 mg/dL (70-99) 446 mg/dL (70-99) 450 mg/dL (70-99) Test 04/28/17 00:20 04/28/17 02:34 04/28/17 03:14 04/28/17 04:17 Glucose (Fingerstick) 210 mg/dL (70-99) 81 mg/dL (70-99) 152 mg/dL (70-99) White Blood Count 8.0 x10^3/uL (4.0-11.0) Red Blood Count 4.21 x10^6/uL (4.30-5.70) Hemoglobin 12.6 g/dL (13.0-17.5) Hematocrit 35.5 % (39.0-53.0) Mean Corpuscular Volume 84 fL (79-100) Mean Corpuscular Hemoglobin 30 pg (25-35) Mean Corpuscular Hemoglobin Concent 36 g/dL (31-37) Red Cell Distribution Width 14.8 % (11.5-14.5) Platelet Count 164 x10^3/uL (140-400) Neutrophils (%) (Auto) 72 % (31-73) Lymphocytes (%) (Auto) 18 % (24-48) Monocytes (%) (Auto) 9 % (0-9) Eosinophils (%) (Auto) 1 % (0-3) Basophils (%) (Auto) 1 % (0-3) Neutrophils # (Auto) 5.7 x10^3uL (1.8-7.7) Lymphocytes # (Auto) 1.4 x10^3/uL (1.0-4.8) Monocytes # (Auto) 0.7 x10^3/uL (0.0-1.1) Eosinophils # (Auto) 0.1 x10^3/uL (0.0-0.7) Basophils # (Auto) 0.0 x10^3/uL (0.0-0.2) Sodium Level 137 mmol/L (136-145) Potassium Level 2.8 mmol/L (3.5-5.1) Chloride Level 98 mmol/L (98-107) Carbon Dioxide Level 32 mmol/L (21-32) Anion Gap 7 (6-14) Blood Urea Nitrogen 39 mg/dL (8-26) Creatinine 2.0 mg/dL (0.7-1.3) Estimated GFR (Cockcroft-Gault) 41.6 Glucose Level 163 mg/dL (70-99) Calcium Level 8.5 mg/dL (8.5-10.1) Magnesium Level 2.4 mg/dL (1.8-2.4) Test 04/28/17 07:02 04/28/17 10:07 Glucose (Fingerstick) 157 mg/dL (70-99) 360 mg/dL (70-99) Laboratory Tests Test 04/27/17 16:28 04/27/17 20:59 04/28/17 00:20 04/28/17 02:34 Glucose (Fingerstick) 446 mg/dL (70-99) 450 mg/dL (70-99) 210 mg/dL (70-99) 81 mg/dL (70-99) Test 04/28/17 03:14 04/28/17 04:17 04/28/17 07:02 04/28/17 10:07 White Blood Count 8.0 x10^3/uL (4.0-11.0) Red Blood Count 4.21 x10^6/uL (4.30-5.70) Hemoglobin 12.6 g/dL (13.0-17.5) Hematocrit 35.5 % (39.0-53.0) Mean Corpuscular Volume 84 fL (79-100) Mean Corpuscular Hemoglobin 30 pg (25-35) Mean Corpuscular Hemoglobin Concent 36 g/dL (31-37) Red Cell Distribution Width 14.8 % (11.5-14.5) Platelet Count 164 x10^3/uL (140-400) Neutrophils (%) (Auto) 72 % (31-73) Lymphocytes (%) (Auto) 18 % (24-48) Monocytes (%) (Auto) 9 % (0-9) Eosinophils (%) (Auto) 1 % (0-3) Basophils (%) (Auto) 1 % (0-3) Neutrophils # (Auto) 5.7 x10^3uL (1.8-7.7) Lymphocytes # (Auto) 1.4 x10^3/uL (1.0-4.8) Monocytes # (Auto) 0.7 x10^3/uL (0.0-1.1) Eosinophils # (Auto) 0.1 x10^3/uL (0.0-0.7) Basophils # (Auto) 0.0 x10^3/uL (0.0-0.2) Sodium Level 137 mmol/L (136-145) Potassium Level 2.8 mmol/L (3.5-5.1) Chloride Level 98 mmol/L (98-107) Carbon Dioxide Level 32 mmol/L (21-32) Anion Gap 7 (6-14) Blood Urea Nitrogen 39 mg/dL (8-26) Creatinine 2.0 mg/dL (0.7-1.3) Estimated GFR (Cockcroft-Gault) 41.6 Glucose Level 163 mg/dL (70-99) Calcium Level 8.5 mg/dL (8.5-10.1) Magnesium Level 2.4 mg/dL (1.8-2.4) Glucose (Fingerstick) 152 mg/dL (70-99) 157 mg/dL (70-99) 360 mg/dL (70-99) Medications Current Medications Sodium Chloride 1,000 ml @ 1,000 mls/hr 1X ONCE IV Last administered on 04:05; Start 04/27/17 at 04:00; Stop 04/27/17 at 04:59; Status DC Insulin Human Regular (NovoLIN R VIAL) 8 unit 1X ONCE IV Last administered on 04/27/17 04:07; Start 04/27/17 at 04:00; Stop 04/27/17 at 04:01; Status DC Potassium Chloride 50 ml @ 50 mls/hr 1X ONCE IV ; Start 04/27/17 at 04:30; Stop 04/27/17 at 05:29; Status UNV Potassium Chloride (Klor-Con) 40 meq 1X ONCE PO Last administered on 04:36; Start 04/27/17 at 05:00; Stop 04/27/17 at 05:01; Status DC Potassium Chloride 100 ml @ 100 mls/hr Q1H IV Last administered on 04/27/17 05:38; Start 04/27/17 at 05:00; Stop 04/27/17 at 06:59; Status DC Ondansetron HCl (Zofran) 4 mg PRN Q8HRS PRN IV NAUSEA/VOMITING; Start 04/27/17 at 05:15; Stop 04/28/17 at 05:14; Status DC Insulin Aspart (NovoLOG) 0-7 UNITS TIDWMEALS SQ Last administered on 04/28/17 12:04; Start 04/27/17 at 12:00 Dextrose (Dextrose 50%-Water Syringe) 12.5 gm PRN Q15MIN PRN IV SEE COMMENTS; Start 04/27/17 at 10:30 Sodium Chloride 1,000 ml @ 150 mls/hr Q6H40M IV Last administered on 07:58; Start 04/27/17 at 11:00 Potassium Chloride (Klor-Con) 40 meq 1X ONCE PO Last administered on 14:02; Start 04/27/17 at 12:15; Stop 04/27/17 at 12:16; Status DC Acetaminophen (Tylenol) 650 mg PRN Q6HRS PRN PO MILD PAIN / TEMP; Start at 16:00 Aspirin (Ecotrin) 81 mg DAILY PO Last administered on 04/28/17 09:28; Start 04/27/17 at 17:00 Atorvastatin Calcium (Lipitor) 40 mg QHS PO Last administered on 04/27/17 20: 44; Start 04/27/17 at 21:00 Vitamin D (Vitamin D3) 2,000 unit DAILY PO Last administered on 04/28/17 09:28 ; Start 04/27/17 at 17:00 Ferrous Sulfate (Feosol) 325 mg DAILY PO Last administered on 04/28/17 09:27; Start 04/27/17 at 17:00 Furosemide (Lasix) 40 mg BID94 PO Last administered on 04/28/17 09:27; Start 04/27/17 at 16:00; Stop 04/28/17 at 11:55; Status DC Linagliptin (Tradjenta) 5 mg DAILY PO Last administered on 04/28/17 09:28; Start 04/27/17 at 17:00 Polyethylene Glycol (miraLAX PACKET) 17 gm PRN DAILY PRN PO CONSTIPATION Last administered on 04/27/17 20:49; Start 04/27/17 at 16:00 Potassium Chloride (Klor-Con) 20 meq BIDWMEALS PO Last administered on 09:28; Start 04/27/17 at 17:00 Non-Formulary Medication 2 puff PRN Q4-6HRS IH ; Start 04/27/17 at 16:00; Status UNV Non-Formulary Medication 1 puff BID INH ; Start 04/27/17 at 21:00; Status UNV Insulin Detemir (Levemir) 16 units QHS SQ Last administered on 04/27/17 22:18 ; Start 04/27/17 at 21:00; Stop 04/28/17 at 11:55; Status DC Albuterol Sulfate (Ventolin Neb Soln) 2.5 mg RTQID NEB Last administered on 11:43; Start 04/27/17 at 20:00 Albuterol Sulfate (Ventolin Neb Soln) 2.5 mg PRN Q4HRS PRN NEB SHORTNESS OF BREATH; Start 04/27/17 at 16:30 Budesonide (Pulmicort) 0.5 mg RTBID NEB Last administered on 04/28/17 07:20; Start 04/27/17 at 20:00 Insulin Aspart (NovoLOG) 8 units 1X ONCE SQ Last administered on 04/27/17 18: 13; Start 04/27/17 at 18:00; Stop 04/27/17 at 18:04; Status DC Insulin Aspart (NovoLOG) 20 units 1X ONCE SQ Last administered on 04/27/17 22 :19; Start 04/27/17 at 22:00; Stop 04/27/17 at 22:01; Status DC Potassium Chloride 100 ml @ 100 mls/hr Q1H IV Last administered on 04/28/17 11:58; Start 04/28/17 at 06:00; Stop 04/28/17 at 09:59; Status DC Insulin Detemir (Levemir) 20 units QHS SQ ; Start 04/28/17 at 21:00 Insulin Aspart (NovoLOG) 8 units TIDAC SQ ; Start 04/28/17 at 16:30 Active Scripts Active Advair 250-50 Diskus (Fluticasone/Salmeterol) 1 Puff Puff 1 Puff INH BID Tylenol (Acetaminophen) 325 Mg Tablet 650 Mg PO PRN Q6HRS PRN Klor-Con M20 (Potassium Chloride) 20 Meq Tablet.er 20 Meq PO BID Lasix (Furosemide) 40 Mg Tablet 40 Mg PO BID94 Reported Miralax (Polyethylene Glycol 3350) 17 Gm Powd.pack 1 Packet PO PRN DAILY PRN Lantus Solostar (Insulin Glargine,Hum.rec.anlog) 100 Unit/1 Ml Insuln.pen 16 Unit SQ HS Aspir 81 (Aspirin) 81 Mg Tablet.dr 1 Tab PO DAILY Coumadin (Warfarin Sodium) 7.5 Mg Tablet 1 Tab PO HS Vitamin D3 (Cholecalciferol (Vitamin D3)) 1,000 Unit Tablet 2 Tab PO DAILY Amiodarone Hcl 200 Mg Tablet 1 Tab PO DAILY Ferrous Sulfate 325 Mg Tablet 325 Mg PO Sildenafil (Sildenafil Citrate) 20 Mg Tablet 10 Mg PO TID Atorvastatin Calcium 40 Mg Tablet 1 Tab PO DAILY Tradjenta (Linagliptin) 5 Mg Tablet 1 Tab PO DAILY NITROGLYCERIN SubLingual (Nitroglycerin) 0.4 Mg Tab.subl 0.4 Mg SL PRN Q5MIN PRN Proair Hfa Inhaler (Albuterol Sulfate) 8.5 Gm Hfa.aer.ad 2 Puff IH PRN Q4-6HRS Vitals/I & O Vital Sign - Last 24 Hours 04/27/17 04/27/17 04/27/17 04/27/17 14:20 14:30 19:00 19:47 Temp 97.9 98.1 97.9 98.1 Pulse 67 62 Resp 18 19 B/P (MAP) 112/66 (81) 106/56 (73) Pulse Ox 96 97 99 O2 Delivery Room Air Room Air Room Air Room Air 04/27/17 04/27/17 04/27/17 04/28/17 19:57 20:10 23:00 03:22 Temp 97.8 97.7 97.8 97.7 Pulse 60 58 Resp 20 20 B/P (MAP) 107/60 (76) 95/57 (70) Pulse Ox 99 100 100 O2 Delivery Room Air Room Air Room Air Room Air 04/28/17 04/28/17 04/28/17 04/28/17 07:00 07:05 07:20 08:30 Temp 97.9 97.9 Pulse 61 Resp 18 B/P (MAP) 88/51 (63) 105/59 (74) Pulse Ox 100 99 O2 Delivery Room Air Room Air Room Air 04/28/17 04/28/17 10:54 11:43 Temp 97.9 97.9 Pulse 72 Resp 18 B/P (MAP) 113/68 (83) Pulse Ox 96 O2 Delivery Room Air Room Air Intake and Output 04/28/17 04/28/17 04/29/17 15:00 23:00 07:00 Intake Total 600 ml Balance 600 ml ATUL GOODMAN MD Apr 28, 2017 14:15
--- NOTE | 2017-04-28 15:04 | EKG ---
[facility] [address] [place] [address] Test Date: 2017-04-28 Test Time: 15:01:09 Pat Name: PRINCE DUTTON Department: Room: 6 1 Gender: M Statistical Developer: LACHELLE : 1955 Requested By: JEAN-PIERRE LAKE Order Number: [id number] Reading MD: Moshe Zendejas Measurements Intervals [place] Rate: 70 P: 0 WV: 160 QRS: -175 QRSD: 92 T: 146 QT: 474 QTc: 515 Interpretive Statements SINUS RHYTHM INTERPOLATED VENTRICULAR PREMATURE COMPLEX(ES) QRS(T) CONTOUR ABNORMALITY CONSISTENT WITH INFERIOR INFARCT PROBABLY OLD ABNORMAL ECG Electronically Signed On 05-20-2017 16:07:50 CDT by Moshe Zendejas
[2017-04-28] MEDS ORDERED: ALPRAZolam 0.25 MG TABLET PO PRN (15:30)
[2017-04-28] MEDS ORDERED: MAG HYDROX/ALUMINUM HYD/SIMETH 30 ML ORAL.SUSP PO PRN (15:45)
[2017-04-28] MEDS ORDERED: CALCIUM CARBONATE 500 MG TAB.CHEW PO PRN (15:45)
[2017-04-28] MEDS: POLYETHYLENE GLYCOL 3350 17 GM PACKET. PO PRN (15:56)
[2017-04-28] MEDS ORDERED: WARFARIN 7.5 MG TABLET. PO SCH (16:00)
--- NOTE | 2017-04-28 16:12 | PDOC ---
JEAN-PIERRE LAKE CONTRACT TECHNICAL WRITER 04/28/17 1612: CARDIO Progress Notes Date and Time Date of Service 04/28/2017 Time of Evaluation 1530 Subjective Subjective: No Chest Pain, No shortness of breath, No Palpitations, No Dizziness Vitals Vitals Vital Signs Date Time Temp Pulse Resp B/P (MAP) Pulse Ox O2 Delivery O2 Flow Rate FiO2 04/28/17 15:00 97.8 68 18 99/56 (70) 97 Room Air 97.8 Weight Weight [ ] Input and Output Intake and Output Intake and Output 04/29/17 07:00 Intake Total 600 ml Balance 600 ml Intake Oral 600 ml Laboratory Labs Laboratory Tests Test 04/27/17 16:28 04/27/17 20:59 04/28/17 00:20 04/28/17 02:34 Glucose (Fingerstick) 446 mg/dL (70-99) 450 mg/dL (70-99) 210 mg/dL (70-99) 81 mg/dL (70-99) Test 04/28/17 03:14 04/28/17 04:17 04/28/17 07:02 04/28/17 10:07 White Blood Count 8.0 x10^3/uL (4.0-11.0) Red Blood Count 4.21 x10^6/uL (4.30-5.70) Hemoglobin 12.6 g/dL (13.0-17.5) Hematocrit 35.5 % (39.0-53.0) Mean Corpuscular Volume 84 fL (79-100) Mean Corpuscular Hemoglobin 30 pg (25-35) Mean Corpuscular Hemoglobin Concent 36 g/dL (31-37) Red Cell Distribution Width 14.8 % (11.5-14.5) Platelet Count 164 x10^3/uL (140-400) Neutrophils (%) (Auto) 72 % (31-73) Lymphocytes (%) (Auto) 18 % (24-48) Monocytes (%) (Auto) 9 % (0-9) Eosinophils (%) (Auto) 1 % (0-3) Basophils (%) (Auto) 1 % (0-3) Neutrophils # (Auto) 5.7 x10^3uL (1.8-7.7) Lymphocytes # (Auto) 1.4 x10^3/uL (1.0-4.8) Monocytes # (Auto) 0.7 x10^3/uL (0.0-1.1) Eosinophils # (Auto) 0.1 x10^3/uL (0.0-0.7) Basophils # (Auto) 0.0 x10^3/uL (0.0-0.2) Sodium Level 137 mmol/L (136-145) Potassium Level 2.8 mmol/L (3.5-5.1) Chloride Level 98 mmol/L (98-107) Carbon Dioxide Level 32 mmol/L (21-32) Anion Gap 7 (6-14) Blood Urea Nitrogen 39 mg/dL (8-26) Creatinine 2.0 mg/dL (0.7-1.3) Estimated GFR (Cockcroft-Gault) 41.6 Glucose Level 163 mg/dL (70-99) Calcium Level 8.5 mg/dL (8.5-10.1) Magnesium Level 2.4 mg/dL (1.8-2.4) Glucose (Fingerstick) 152 mg/dL (70-99) 157 mg/dL (70-99) 360 mg/dL (70-99) Review of Systems Constitutional: yes: alert, oriented Ears/Nose/Throat: Yes: no symptom reported Eyes: Yes: no symptom reported Pulmonary: Yes no symptom reported Cardiovascular: Yes no symptom reported Gastrointestional: Yes: no symptom reported Genitourinary: Yes: no symptom reported Musculoskeletal: Yes: no symptom reported Psychiatric/Neurological: Yes: no symptom reported Endocrine: Yes: no symptom reported Physical Exam HEENT: Neck Supple W Full Motion Chest: Symmetric LUNGS: Clear to Auscultation Heart: S1S2, RRR (SR) Neurology: alert, oriented, follow commands Assessment Assessment 1. Weakness; multifactorial, much better today 2. Atypical CP: likely from anxiety, panic 3. FATOU on CKD3 and hypokalemia; per nephrology 4. Ischemic Cardiomyopathy: EF 30-35% with severe MR on 04/11/2016 and 2016 EF at 45% 5. CAD: last [facility] 06/2016 METAL BURNISHER of proximal LCx, occluded stentswith faint collaterals from LAD and RCA and diffuse luminal irregularities with mild nonobstructive CAD to the remainder of chilkat vessels. 6. Valvular disease: 02/2016 Open S/P tricuspid repair with ESTRELLITA ligation, DeVega annuloplasty and mitral clip 7. Abnormal EKG/bradycardia: This is due to prolonged QTc at 548 and hypokalemia. Repeated QTc at 515. HR better today 8. Chronic diastolic/systolic CHF: compensated. 7. COPD 8. HTN: controlled 9. DM2/HLP; poorly controlled BG 10. PAFIB Recommendations 1. Reviewed [facility] records. would not continue amiodarone at this time. Will start on metoprolol likely tomorrow for his PAFIB. 2. Follow nephrology recommendations 3. Will need to arrange for event monitor, and will defer to his [facility] server support technician 4. Defer OAC to PCP. 5. Continue with secondary prevention. SHAMAR POWELL MD 04/28/17 1650: CARDIO Progress Notes Assessment Assessment Patient seen and examined. Agree with CREDIT OR LOANS OFFICER's assessment and plan. Maintaining sinus rhythm. Chest pain he had earlier today appears to be secondary to anxiety. CAD status stable overall. Ischemic cardiomyopathy clinically well compensated. Continue to hold amiodarone. Plan for outpatient event monitor and follow-up with primary server support technician. JEAN-PIERRE LAKE APRN Apr 28, 2017 16:12 SHAMAR POWELL MD Apr 28, 2017 16:50
[2017-04-28] MEDS: ATORVASTATIN CALCIUM 40 MG TABLET. PO SCH (20:36)
[2017-04-28] MEDS ORDERED: INSULIN ASPART 300 UNITS/3 ML INSULN.PEN SQ ONE (21:00)
[2017-04-28] MEDS ORDERED: INSULIN DETEMIR 300 UNITS/3 ML INSULN.PEN. SQ SCH (21:00)
[2017-04-29] MEDS: IV NORMAL SALINE 1000ML BAG 1,000 ML IV SCH ×3 (02:56→09:28)
[2017-04-29 03:00] VITALS: BP 93/56
[2017-04-29 05:02] LABS: BASO % 0 % (0-3); EOS % 1 % (0-3); HEMATOCRIT 35.9 % (39.0-53.0); HEMOGLOBIN 12.2 g/dL (13.0-17.5); LYMPH # 1.3 x10^3/uL (1.0-4.8); LYMPH % 15 % (24-48); MEAN CORPUSCULAR HEMOGLOBIN 30 pg (25-35); MEAN CORPUSCULAR HGB CONC 34 g/dL (31-37); MEAN CORPUSCULAR VOLUME 87 fL (79-100); MONO % 8 % (0-9); NEUT % 76 % (31-73); PLATELET COUNT 133 x10^3/uL (140-400); RED BLOOD COUNT 4.12 x10^6/uL (4.30-5.70); RED CELL DISTRIBUTION WIDTH 15.1 % (11.5-14.5); WHITE BLOOD COUNT 8.9 x10^3/uL (4.0-11.0)
[2017-04-29 05:14] LABS: INR 1.7 (0.8-1.1); PROTHROMBIN TIME PATIENT 18.6 SEC (11.7-14.0)
[2017-04-29 05:33] LABS: CALCIUM 8.6 mg/dL (8.5-10.1); CREATININE 1.8 mg/dL (0.7-1.3); MAGNESIUM 2.5 mg/dL (1.8-2.4); PHOSPHORUS 2.7 mg/dL (2.6-4.7); POTASSIUM 3.3 mmol/L (3.5-5.1)
[2017-04-29 07:00] VITALS: BP 88/53
[2017-04-29] MEDS: ASPIRIN ENTERIC COATED 81 MG TABLET.DR. PO SCH (08:06)
[2017-04-29] MEDS: FERROUS SULFATE 325 MG TABLET. PO SCH (08:06)
[2017-04-29] MEDS: POTASSIUM CHLORIDE 20 MEQ TABLET.ER. PO SCH (08:06)
[2017-04-29] MEDS: CHOLECALCIFEROL (VITAMIN D3) 1,000 UNIT TABLET PO SCH (08:06)
[2017-04-29] MEDS: LINAGLIPTIN 5 MG TABLET PO SCH (08:06)
[2017-04-29] MEDS: INSULIN ASPART 300 UNITS/3 ML INSULN.PEN SQ SCH ×3 (08:12→11:30)
[2017-04-29] MEDS ORDERED: POTASSIUM CHLORIDE 20 MEQ TABLET.ER. PO ONE (08:30)
--- NOTE | 2017-04-29 08:42 | RAD ---
Portable chest, 04/28/2017: History: Chest pain, coronary artery disease Comparison is made to a study from 07/16/2015. There has been a previous median sternotomy. The heart is within normal limits in size. No pulmonary infiltrates are seen. There is no evidence of pleural fluid. IMPRESSION: No acute cardiopulmonary abnormality is detected.
[2017-04-29] MEDS: BUDESONIDE 0.5 MG/2 ML NEBU. NEB SCH (08:51)
[2017-04-29] MEDS: ALBUTEROL SULFATE 2.5 MG/3 ML NEBU. NEB SCH (08:51)
--- NOTE | 2017-04-29 10:41 | PDOC ---
PROGRESS NOTES Chief Complaint Chief Complaint Hyperglycemia Uncontrolled DM2 FATOU on CKD3, vasomotor Abnormal EKG/bradycardia: This is due to prolonged QTc at 548 and hypokalemia. h/o CAD: PCI/stents in 2014. post CABG? COPD HTN HLP PAFIB on coumadin and amiodarone hypokalemia History of Present Illness History of Present Illness Pt was laying in bed and conversant. He would like to get out of the hospital. Pt has no new complaints at this time. Discussed plan of care with RN including D/C and K replacement and fluid discontinuation. D/C will be put in and cardiology notified. Dr. 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 Vitals Vital Signs Date Time Temp Pulse Resp B/P (MAP) Pulse Ox O2 Delivery O2 Flow Rate FiO2 04/29/17 09:05 Room Air 04/29/17 07:00 97.9 74 18 88/53 (65) 96 97.9 Physical Exam General: Alert, Oriented X3, Cooperative, No acute distress Heart: Regular rate, Normal S1, Normal S2 Lungs: Clear Abdomen: Normal bowel sounds, Soft, No tenderness Extremities: No clubbing, No cyanosis Skin: No rashes, No breakdown Labs LABS Laboratory Tests Test 04/28/17 16:19 04/28/17 20:34 04/29/17 04:47 04/29/17 07:17 Glucose (Fingerstick) 428 mg/dL (70-99) 351 mg/dL (70-99) 196 mg/dL (70-99) White Blood Count 8.9 x10^3/uL (4.0-11.0) Red Blood Count 4.12 x10^6/uL (4.30-5.70) Hemoglobin 12.2 g/dL (13.0-17.5) Hematocrit 35.9 % (39.0-53.0) Mean Corpuscular Volume 87 fL (79-100) Mean Corpuscular Hemoglobin 30 pg (25-35) Mean Corpuscular Hemoglobin Concent 34 g/dL (31-37) Red Cell Distribution Width 15.1 % (11.5-14.5) Platelet Count 133 x10^3/uL (140-400) Neutrophils (%) (Auto) 76 % (31-73) Lymphocytes (%) (Auto) 15 % (24-48) Monocytes (%) (Auto) 8 % (0-9) Eosinophils (%) (Auto) 1 % (0-3) Basophils (%) (Auto) 0 % (0-3) Neutrophils # (Auto) 6.7 x10^3uL (1.8-7.7) Lymphocytes # (Auto) 1.3 x10^3/uL (1.0-4.8) Monocytes # (Auto) 0.7 x10^3/uL (0.0-1.1) Eosinophils # (Auto) 0.1 x10^3/uL (0.0-0.7) Basophils # (Auto) 0.0 x10^3/uL (0.0-0.2) Prothrombin Time 18.6 SEC (11.7-14.0) Prothromb Time International Ratio 1.7 (0.8-1.1) Sodium Level 138 mmol/L (136-145) Potassium Level 3.3 mmol/L (3.5-5.1) Chloride Level 104 mmol/L (98-107) Carbon Dioxide Level 27 mmol/L (21-32) Anion Gap 7 (6-14) Blood Urea Nitrogen 28 mg/dL (8-26) Creatinine 1.8 mg/dL (0.7-1.3) Estimated GFR (Cockcroft-Gault) 47.0 Glucose Level 201 mg/dL (70-99) Calcium Level 8.6 mg/dL (8.5-10.1) Phosphorus Level 2.7 mg/dL (2.6-4.7) Magnesium Level 2.5 mg/dL (1.8-2.4) Test 04/29/17 10:15 Glucose (Fingerstick) 256 mg/dL (70-99) Review of Systems Review of Systems Pt fatigued Pt complains of hunger Pt irritable Assessment and Plan Assessmemt and Plan Problems Medical Problems: (1) Abnormal EKG Status: Acute (2) Dehydration Status: Acute (3) Prolonged QT interval Status: Acute Hyperglycemia Uncontrolled DM2 FATOU on CKD3, vasomotor Abnormal EKG/bradycardia: This is due to prolonged QTc at 548 and hypokalemia. h/o CAD: PCI/stents in 2014. post CABG? COPD HTN HLP PAFIB on coumadin and amiodarone hypokalemia Plan: Gave 40 mg potassium x2 Will D/C today Notify cardiology Home meds Appreciate subspecialty input Problems: Comment Review of Relevant I have reviewed the following items eliana (where applicable) has been applied. Labs Laboratory Tests Test 04/27/17 10:58 04/27/17 16:28 04/27/17 20:59 04/28/17 00:20 Glucose (Fingerstick) 241 mg/dL (70-99) 446 mg/dL (70-99) 450 mg/dL (70-99) 210 mg/dL (70-99) Test 04/28/17 02:34 04/28/17 03:14 04/28/17 04:17 04/28/17 07:02 Glucose (Fingerstick) 81 mg/dL (70-99) 152 mg/dL (70-99) 157 mg/dL (70-99) White Blood Count 8.0 x10^3/uL (4.0-11.0) Red Blood Count 4.21 x10^6/uL (4.30-5.70) Hemoglobin 12.6 g/dL (13.0-17.5) Hematocrit 35.5 % (39.0-53.0) Mean Corpuscular Volume 84 fL (79-100) Mean Corpuscular Hemoglobin 30 pg (25-35) Mean Corpuscular Hemoglobin Concent 36 g/dL (31-37) Red Cell Distribution Width 14.8 % (11.5-14.5) Platelet Count 164 x10^3/uL (140-400) Neutrophils (%) (Auto) 72 % (31-73) Lymphocytes (%) (Auto) 18 % (24-48) Monocytes (%) (Auto) 9 % (0-9) Eosinophils (%) (Auto) 1 % (0-3) Basophils (%) (Auto) 1 % (0-3) Neutrophils # (Auto) 5.7 x10^3uL (1.8-7.7) Lymphocytes # (Auto) 1.4 x10^3/uL (1.0-4.8) Monocytes # (Auto) 0.7 x10^3/uL (0.0-1.1) Eosinophils # (Auto) 0.1 x10^3/uL (0.0-0.7) Basophils # (Auto) 0.0 x10^3/uL (0.0-0.2) Sodium Level 137 mmol/L (136-145) Potassium Level 2.8 mmol/L (3.5-5.1) Chloride Level 98 mmol/L (98-107) Carbon Dioxide Level 32 mmol/L (21-32) Anion Gap 7 (6-14) Blood Urea Nitrogen 39 mg/dL (8-26) Creatinine 2.0 mg/dL (0.7-1.3) Estimated GFR (Cockcroft-Gault) 41.6 Glucose Level 163 mg/dL (70-99) Calcium Level 8.5 mg/dL (8.5-10.1) Magnesium Level 2.4 mg/dL (1.8-2.4) Test 04/28/17 10:07 04/28/17 16:19 04/28/17 20:34 04/29/17 04:47 Glucose (Fingerstick) 360 mg/dL (70-99) 428 mg/dL (70-99) 351 mg/dL (70-99) White Blood Count 8.9 x10^3/uL (4.0-11.0) Red Blood Count 4.12 x10^6/uL (4.30-5.70) Hemoglobin 12.2 g/dL (13.0-17.5) Hematocrit 35.9 % (39.0-53.0) Mean Corpuscular Volume 87 fL (79-100) Mean Corpuscular Hemoglobin 30 pg (25-35) Mean Corpuscular Hemoglobin Concent 34 g/dL (31-37) Red Cell Distribution Width 15.1 % (11.5-14.5) Platelet Count 133 x10^3/uL (140-400) Neutrophils (%) (Auto) 76 % (31-73) Lymphocytes (%) (Auto) 15 % (24-48) Monocytes (%) (Auto) 8 % (0-9) Eosinophils (%) (Auto) 1 % (0-3) Basophils (%) (Auto) 0 % (0-3) Neutrophils # (Auto) 6.7 x10^3uL (1.8-7.7) Lymphocytes # (Auto) 1.3 x10^3/uL (1.0-4.8) Monocytes # (Auto) 0.7 x10^3/uL (0.0-1.1) Eosinophils # (Auto) 0.1 x10^3/uL (0.0-0.7) Basophils # (Auto) 0.0 x10^3/uL (0.0-0.2) Prothrombin Time 18.6 SEC (11.7-14.0) Prothromb Time International Ratio 1.7 (0.8-1.1) Sodium Level 138 mmol/L (136-145) Potassium Level 3.3 mmol/L (3.5-5.1) Chloride Level 104 mmol/L (98-107) Carbon Dioxide Level 27 mmol/L (21-32) Anion Gap 7 (6-14) Blood Urea Nitrogen 28 mg/dL (8-26) Creatinine 1.8 mg/dL (0.7-1.3) Estimated GFR (Cockcroft-Gault) 47.0 Glucose Level 201 mg/dL (70-99) Calcium Level 8.6 mg/dL (8.5-10.1) Phosphorus Level 2.7 mg/dL (2.6-4.7) Magnesium Level 2.5 mg/dL (1.8-2.4) Test 04/29/17 07:17 04/29/17 10:15 Glucose (Fingerstick) 196 mg/dL (70-99) 256 mg/dL (70-99) Laboratory Tests Test 04/28/17 16:19 04/28/17 20:34 04/29/17 04:47 04/29/17 07:17 Glucose (Fingerstick) 428 mg/dL (70-99) 351 mg/dL (70-99) 196 mg/dL (70-99) White Blood Count 8.9 x10^3/uL (4.0-11.0) Red Blood Count 4.12 x10^6/uL (4.30-5.70) Hemoglobin 12.2 g/dL (13.0-17.5) Hematocrit 35.9 % (39.0-53.0) Mean Corpuscular Volume 87 fL (79-100) Mean Corpuscular Hemoglobin 30 pg (25-35) Mean Corpuscular Hemoglobin Concent 34 g/dL (31-37) Red Cell Distribution Width 15.1 % (11.5-14.5) Platelet Count 133 x10^3/uL (140-400) Neutrophils (%) (Auto) 76 % (31-73) Lymphocytes (%) (Auto) 15 % (24-48) Monocytes (%) (Auto) 8 % (0-9) Eosinophils (%) (Auto) 1 % (0-3) Basophils (%) (Auto) 0 % (0-3) Neutrophils # (Auto) 6.7 x10^3uL (1.8-7.7) Lymphocytes # (Auto) 1.3 x10^3/uL (1.0-4.8) Monocytes # (Auto) 0.7 x10^3/uL (0.0-1.1) Eosinophils # (Auto) 0.1 x10^3/uL (0.0-0.7) Basophils # (Auto) 0.0 x10^3/uL (0.0-0.2) Prothrombin Time 18.6 SEC (11.7-14.0) Prothromb Time International Ratio 1.7 (0.8-1.1) Sodium Level 138 mmol/L (136-145) Potassium Level 3.3 mmol/L (3.5-5.1) Chloride Level 104 mmol/L (98-107) Carbon Dioxide Level 27 mmol/L (21-32) Anion Gap 7 (6-14) Blood Urea Nitrogen 28 mg/dL (8-26) Creatinine 1.8 mg/dL (0.7-1.3) Estimated GFR (Cockcroft-Gault) 47.0 Glucose Level 201 mg/dL (70-99) Calcium Level 8.6 mg/dL (8.5-10.1) Phosphorus Level 2.7 mg/dL (2.6-4.7) Magnesium Level 2.5 mg/dL (1.8-2.4) Test 04/29/17 10:15 Glucose (Fingerstick) 256 mg/dL (70-99) Medications Current Medications Sodium Chloride 1,000 ml @ 1,000 mls/hr 1X ONCE IV Last administered on t 04:05; Start 04/27/17 at 04:00; Stop 04/27/17 at 04:59; Status DC Insulin Human Regular (NovoLIN R VIAL) 8 unit 1X ONCE IV Last administered on 04/27/17 04:07; Start 04/27/17 at 04:00; Stop 04/27/17 at 04:01; Status DC Potassium Chloride 50 ml @ 50 mls/hr 1X ONCE IV ; Start 04/27/17 at 04:30; Stop 04/27/17 at 05:29; Status UNV Potassium Chloride (Klor-Con) 40 meq 1X ONCE PO Last administered on 04:36; Start 04/27/17 at 05:00; Stop 04/27/17 at 05:01; Status DC Potassium Chloride 100 ml @ 100 mls/hr Q1H IV Last administered on 04/27/17 05:38; Start 04/27/17 at 05:00; Stop 04/27/17 at 06:59; Status DC Ondansetron HCl (Zofran) 4 mg PRN Q8HRS PRN IV NAUSEA/VOMITING; Start 04/27/17 at 05:15; Stop 04/28/17 at 05:14; Status DC Insulin Aspart (NovoLOG) 0-7 UNITS TIDWMEALS SQ Last administered on 04/29/17 08:12; Start 04/27/17 at 12:00 Dextrose (Dextrose 50%-Water Syringe) 12.5 gm PRN Q15MIN PRN IV SEE COMMENTS; Start 04/27/17 at 10:30 Sodium Chloride 1,000 ml @ 150 mls/hr Q6H40M IV Last administered on 09:28; Start 04/27/17 at 11:00 Potassium Chloride (Klor-Con) 40 meq 1X ONCE PO Last administered on 14:02; Start 04/27/17 at 12:15; Stop 04/27/17 at 12:16; Status DC Acetaminophen (Tylenol) 650 mg PRN Q6HRS PRN PO MILD PAIN / TEMP; Start at 16:00 Aspirin (Ecotrin) 81 mg DAILY PO Last administered on 04/29/17 08:06; Start 04/27/17 at 17:00 Atorvastatin Calcium (Lipitor) 40 mg QHS PO Last administered on 04/28/17 20: 36; Start 04/27/17 at 21:00 Vitamin D (Vitamin D3) 2,000 unit DAILY PO Last administered on 04/29/17 08:06 ; Start 04/27/17 at 17:00 Ferrous Sulfate (Feosol) 325 mg DAILY PO Last administered on 04/29/17 08:06; Start 04/27/17 at 17:00 Furosemide (Lasix) 40 mg [id number] PO Last administered on 04/28/17 09:27; Start 04/27/17 at 16:00; Stop 04/28/17 at 11:55; Status DC Linagliptin (Tradjenta) 5 mg DAILY PO Last administered on 04/29/17 08:06; Start 04/27/17 at 17:00 Polyethylene Glycol (miraLAX PACKET) 17 gm PRN DAILY PRN PO CONSTIPATION Last administered on 04/28/17 15:56; Start 04/27/17 at 16:00 Potassium Chloride (Klor-Con) 20 meq BIDWMEALS PO Last administered on 08:06; Start 04/27/17 at 17:00 Non-Formulary Medication 2 puff PRN Q4-6HRS IH ; Start 04/27/17 at 16:00; Status UNV Non-Formulary Medication 1 puff BID INH ; Start 04/27/17 at 21:00; Status UNV Insulin Detemir (Levemir) 16 units QHS SQ Last administered on 04/27/17 22:18 ; Start 04/27/17 at 21:00; Stop 04/28/17 at 11:55; Status DC Albuterol Sulfate (Ventolin Neb Soln) 2.5 mg RTQID NEB Last administered on 08:51; Start 04/27/17 at 20:00 Albuterol Sulfate (Ventolin Neb Soln) 2.5 mg PRN Q4HRS PRN NEB SHORTNESS OF BREATH; Start 04/27/17 at 16:30 Budesonide (Pulmicort) 0.5 mg RTBID NEB Last administered on 04/29/17 08:51; Start 04/27/17 at 20:00 Insulin Aspart (NovoLOG) 8 units 1X ONCE SQ Last administered on 04/27/17 18: 13; Start 04/27/17 at 18:00; Stop 04/27/17 at 18:04; Status DC Insulin Aspart (NovoLOG) 20 units 1X ONCE SQ Last administered on 04/27/17 22 :19; Start 04/27/17 at 22:00; Stop 04/27/17 at 22:01; Status DC Potassium Chloride 100 ml @ 100 mls/hr Q1H IV Last administered on 04/28/17 11:58; Start 04/28/17 at 06:00; Stop 04/28/17 at 09:59; Status DC Insulin Detemir (Levemir) 20 units QHS SQ Last administered on 04/28/17 20:39 ; Start 04/28/17 at 21:00 Insulin Aspart (NovoLOG) 8 units TIDAC SQ Last administered on 04/29/17 08:12 ; Start 04/28/17 at 16:30 Warfarin Sodium (Coumadin) 7.5 mg DAILY16 PO Last administered on 04/28/17 16: 32; Start 04/28/17 at 16:00 Alprazolam (Xanax) 0.25 mg PRN Q8HRS PRN PO ANXIETY / AGITATION Last administered on 04/28/17 15:56; Start 04/28/17 at 15:30 Al Hydroxide/Mg Hydroxide (Mylanta Plus Xs) 30 ml PRN Q2HR PRN PO HEARTBURN / GAS Last administered on 04/28/17 15:56; Start 04/28/17 at 15:45 Calcium Carbonate/ Glycine (Tums) 500 mg PRN AFTMEALHC PRN PO INDIGESTION Last administered on 04/28/17 21:37; Start 04/28/17 at 15:45 Insulin Aspart (NovoLOG) 7 units 1X ONCE SQ Last administered on 04/28/17 21: 46; Start 04/28/17 at 21:00; Stop 04/28/17 at 21:02; Status DC Potassium Chloride (Klor-Con) 40 meq 1X ONCE PO Last administered on 09:28; Start 04/29/17 at 08:30; Stop 04/29/17 at 08:31; Status DC Active Scripts Active Advair 250-50 Diskus (Fluticasone/Salmeterol) 1 Puff Puff 1 Puff INH BID Tylenol (Acetaminophen) 325 Mg Tablet 650 Mg PO PRN Q6HRS PRN Klor-Con M20 (Potassium Chloride) 20 Meq Tablet.er 20 Meq PO BID Lasix (Furosemide) 40 Mg Tablet 40 Mg PO [id number] Reported Miralax (Polyethylene Glycol 3350) 17 Gm Powd.pack 1 Packet PO PRN DAILY PRN Lantus Solostar (Insulin Glargine,Hum.rec.anlog) 100 Unit/1 Ml Insuln.pen 16 Unit SQ HS Aspir 81 (Aspirin) 81 Mg Tablet.dr 1 Tab PO DAILY Coumadin (Warfarin Sodium) 7.5 Mg Tablet 1 Tab PO HS Vitamin D3 (Cholecalciferol (Vitamin D3)) 1,000 Unit Tablet 2 Tab PO DAILY Amiodarone Hcl 200 Mg Tablet 1 Tab PO DAILY Ferrous Sulfate 325 Mg Tablet 325 Mg PO Sildenafil (Sildenafil Citrate) 20 Mg Tablet 10 Mg PO TID Atorvastatin Calcium 40 Mg Tablet 1 Tab PO DAILY Tradjenta (Linagliptin) 5 Mg Tablet 1 Tab PO DAILY NITROGLYCERIN SubLingual (Nitroglycerin) 0.4 Mg Tab.subl 0.4 Mg SL PRN Q5MIN PRN Proair Hfa Inhaler (Albuterol Sulfate) 8.5 Gm Hfa.aer.ad 2 Puff IH PRN Q4-6HRS Vitals/I & O Vital Sign - Last 24 Hours 04/28/17 04/28/17 04/28/17 04/28/17 10:54 11:43 15:00 15:56 Temp 97.9 97.8 97.9 97.8 Pulse 72 68 Resp 18 18 B/P (MAP) 113/68 (83) 99/56 (70) Pulse Ox 96 97 O2 Delivery Room Air Room Air Room Air Room Air 04/28/17 04/28/17 04/28/17 04/28/17 19:00 19:32 19:33 20:00 Temp 98.1 98.1 Pulse 66 Resp 18 B/P (MAP) 102/64 (77) Pulse Ox 100 100 100 O2 Delivery Room Air Room Air Room Air Room Air 04/28/17 04/29/17 04/29/17 04/29/17 23:08 03:00 07:00 08:15 Temp 97.6 97.6 97.9 97.6 97.6 97.9 Pulse 66 60 74 Resp 20 19 18 B/P (MAP) 98/55 (69) 93/56 (68) 88/53 (65) Pulse Ox 100 95 96 O2 Delivery Room Air Room Air Room Air Room Air 04/29/17 09:05 O2 Delivery Room Air Intake and Output 04/29/17 04/29/17 04/30/17 15:00 23:00 07:00 Intake Total 2000 ml Balance 2000 ml AIDA PEACE III DO Apr 29, 2017 10:41
[2017-04-29 10:42] VITALS: BP 108/69
--- NOTE | 2017-05-14 12:26 | DS ---
DATE OF DISCHARGE: 04/29/2017 ADMISSION DIAGNOSES: Hyperglycemic hyperosmolar state, atrial fibrillation. DISCHARGE DIAGNOSIS: Resolving hyperglycemic hyperosmolar state. HOSPITAL COURSE: The patient is a pleasant 61-year-old male who presented with arrhythmias and hyperglycemia. He was dehydrated as well. We gave him IV fluids, IV insulin. We monitored his heart. He did well. We discharged home with an event monitor. DISPOSITION: Home with the event monitor. ACTIVITY: As tolerated. DIET: Low sodium. MEDICATIONS: Please see MRAD. TOTAL TIME ON DISCHARGE: 35 minutes. AIDA PEACE DO DR: DONNA/avtar JOB#: [id number] / [id number]
== END 2017-04-29 11:52 | disposition home or self-care (01) | DRG 637 ==
LOC: ER 02:58 → 5 NORTH 06:16 → ER 06:45
PROVIDERS: ADMIT Internal Medicine; ATTEND Internal Medicine
DX: E10.65 Type 1 diabetes mellitus with hyperglycemia (principal); N17.0 Acute kidney failure with tubular necrosis; I50.42 Chronic combined systolic (congestive) and diastolic (congestive) heart failure; I13.0 Hypertensive heart and chronic kidney disease with heart failure and stage 1 through stage 4 chronic kidney disease, or unspecified chronic kidney disease; E10.22 Type 1 diabetes mellitus with diabetic chronic kidney disease; E86.0 Dehydration; I48.0 Paroxysmal atrial fibrillation; E87.1 Hypo-osmolality and hyponatremia; E78.00 Pure hypercholesterolemia, unspecified; E78.5 Hyperlipidemia, unspecified; E87.6 Hypokalemia; F41.9 Anxiety disorder, unspecified; G47.33 Obstructive sleep apnea (adult) (pediatric); I25.10 Atherosclerotic heart disease of native coronary artery without angina pectoris; I25.5 Ischemic cardiomyopathy; J44.9 Chronic obstructive pulmonary disease, unspecified; M19.90 Unspecified osteoarthritis, unspecified site; K21.9 Gastro-esophageal reflux disease without esophagitis; N18.3 Chronic kidney disease, stage 3 (moderate); Z79.01 Long term (current) use of anticoagulants; Z82.49 Family history of ischemic heart disease and other diseases of the circulatory system; Z95.1 Presence of aortocoronary bypass graft; Z83.3 Family history of diabetes mellitus; Z95.5 Presence of coronary angioplasty implant and graft; I25.2 Old myocardial infarction; Z88.8 Allergy status to other drugs, medicaments and biological substances; Z91.013 Allergy to seafood; Z79.4 Long term (current) use of insulin
CPT/HCPCS: 36415; 71010; 80048; 80053; 82962; 83036; 83735; 84100; 84443; 84484; 85007; 85025; 85610; 93005; 94250; 94640; 96365; 96366; 96375; J1815; J3480; J7030; J7613; J7626; 99285-25